=== PATIENT | female | born 1990 | race Caucasian/White ===

== ENCOUNTER 2016-08-18 17:56 | Inpatient (IN) | payer OTHER ==
--- NOTE | ~2016-08-18 | HP ---
History And Physical [id number] [place]. [address] NAME: TAVO MARTINS : 86 STATUS : ADM [place] PAT#: [id number] AGE: 25 ADM/REG DATE : 08/18/16 MR#: [id number] REPORT SERV DATE: 08/18/16 DICTATED BY: BERYL ARTIS DATE: 08/18/16 REPORT STATUS : Draft TRANSCRIBED BY: CHAZ DATE: 08/18/16 DATE OF ADMISSION: 08/18/2016 CHIEF COMPLAINT: DKA, direct admission/transfer from outside hospital facility. HISTORY OF PRESENT ILLNESS: According to the information available, the patient is a pleasant 25-year-old white woman with known diabetes type 1 since 2000 with insulin pump since 2008 who presented to [facility] Emergency Room Department complaining of blood sugar checking high on the glucometer throughout the night with increased vomiting and frequent urination. The patient had a prior episodes of DKA for which she was admitted in the fall at [facility]. The patient stated otherwise she has been managing her diabetes relatively well with insulin pump. [place] [facility] [place] noticed to be ill appearing. Further investigation revealed a diabetic ketoacidosis. She was started on insulin drip, IV fluids, and then request was made to transfer to our hospital as a direct admission for further management and evaluation as there were no beds available at the main [facility]. The patient denies any recent fever or chills. Denies any recent change in her medications or change in her regular diet. Denies any recent travel outside of the area or contact with sick persons or persons that travel outside of the area. PAST MEDICAL HISTORY: Significant for diabetes type 1 since 2000. Presently on an insulin pump since 2008. Only one episode of DKA admission in the fall, apparently triggered by a urinary tract infection as per the patient. History of hyperlipidemia, obesity, history reported the gastroparesis, diabetic neuropathy, osteoarthritis of both knees, history of asthma mild and intermittent PAST SURGICAL HISTORY: Significant for umbilical hernia repair in 2012. FAMILY HISTORY: Significant for hypertension. SOCIAL HISTORY: Denies tobacco abuse. She has never smoked. Denies alcohol abuse. Denies illicit or recreational drug abuse. Lives with family, has one child, 4 years old. ALLERGIES: TO ASPIRIN AND SURGICAL TAPE. HOME MEDICATIONS: According to the list provided, the patient is supposed to take Humalog insulin for the insulin pump. According to the reported Humalog schedule basal rate, she takes 0.77 units/hour from 12 a.m. to 7 a.m., then 0.9 units/hour from 7 a.m. to 12 p.m., and then 0.95 units/hour from 12 p.m. until 12 a.m. The patient takes at home Neurontin 300 mg p.o. q.h.s., reported Zocor 10 mg p.o. daily, Ultram 50 mg p.o. q.i.d. p.r.n. pain, phentermine 18.75 mg p.o. daily together with Topamax 50 mg p.o. daily, albuterol MDI two puffs q.4 hours p.r.n. shortness of breath, and Voltaren 1% gel 4 g topically t.i.d. to both knees. REVIEW OF SYSTEMS: Per H and P, otherwise negative in all review of systems. Please note that the History And Physical [address] [address] NAME: TAVO MARTINS : 88 STATUS : ADM [place] PAT#: [id number] AGE: 25 ADM/REG DATE : 08/18/16 MR#: [id number] REPORT SERV DATE: 08/18/16 DICTATED BY: BERYL ARTIS DATE: 08/18/16 REPORT STATUS : Draft TRANSCRIBED BY: MODL DATE: 08/18/16 comprehensive review of system was obtained and pertinent positives were including in the H and P. PHYSICAL EXAMINATION: GENERAL: Pleasant, cooperant, but pale, in mild distress, and ill appearing. VITAL SIGNS: Upon arrival to [facility] Emergency Room Department, blood pressure 117/63, pulse 78, respiratory rate 18, temperature 98, oxygen saturation 99%. Glucometer recording high. Upon arrival to our hospital, blood pressure 109/55, pulse 90, temperature 97.9, oxygen saturation 99% on room air, respiratory rate 20. HEENT: Pupils equal, round, and reactive to light. Extraocular movements intact. Throat, mild erythema. No exudate. NECK: Supple. No JVD. No bruit. No thyromegaly. No lymph nodes. LUNGS: Bilateral air entry with few a few bibasilary crackles. Good airway movement. No wheezing. HEART: Positive S1, S2. Regular rate and rhythm. No murmur. No rub. No gallop. PMI nondisplaced by palpation. ABDOMEN: Positive bowel sounds. Soft, obese, nontender. No guarding. No hepatosplenomegaly. EXTREMITIES: Full range of motion. +2 pulses. No clubbing, no cyanosis, no edema. NEUROLOGIC: Alert and oriented x3. Grossly nonfocal. Cranial nerves II through XII grossly intact. Motor strength: 5/5 symmetrical bilateral. Deep tendon reflexes 2/2 symmetrical bilateral. BACK: With decreased range of motion. Bilateral focal localized tenderness. No CVA tenderness. SKIN: No bruises, no rashes, no lacerations. SIGNIFICANT LABORATORY DATA: No laboratory data available as the patient is a direct admission from outside hospital facility. Review of the medical records sent to the patient show the pH 7.35/pCO2 of 32/pO2 of 96 in the room air. Sodium 127, potassium 5.4, chloride 94, bicarb 14, glucose 691, calcium 10, BUN 25, creatinine 0.9. Lipase 10 which is within normal limits. Liver function tests within normal limits. Magnesium 2 and phosphorus 4.8. White cell count 12.1, hemoglobin 13.4, platelet count 226. Urinalysis showed negative LE, negative nitrite, moderate blood. serum test negative. ASSESSMENT AND PLAN AND PROBLEM LIST: The patient is a pleasant 25-year-old white woman with known history of diabetes type 1, managed with the insulin pump presently, admitted as a direct admission from outside hospital facility for DKA. IMPRESSION: 1. Endocrinologic problem. a. Diabetic ketoacidosis. b. Diabetes type 1 with complications, presently on insulin pump at home. c. Hyperlipidemia. d. Obesity. For all the above, we are going to admit the patient on the Hospitalist Service on telemetry setting. We are going to continue diabetic History And Physical [address] [address] NAME: TAVO MARTINS : 86 STATUS : ADM [place] [facility]#: [id number] AGE: 25 ADM/REG DATE : 08/18/16 MR#: [id number] REPORT SERV DATE: 08/18/16 DICTATED BY: BERYL ARTIS ION DATE: 08/18/16 REPORT STATUS : Draft TRANSCRIBED BY: CHAZ DATE: 08/18/16 ketoacidosis treatment with aggressive IV hydration on normal saline 200 mL an hour and then after another extra liter to 150 mL an hour. We are going to change IV fluids D5 half NS with potassium and blood sugar decreases below 200. We are going to continue the insulin drip as per protocol with a target blood sugar level within 125 to 175 and targeted weight loss and dietary changes. Provide symptomatic treatment with Protonix IV, Zofran, and Phenergan IV p.r.n. 2. Leukocytosis, likely reactive leukemoid reaction. No obvious signs of clinical significant infectious process. We are going to continue to monitor for now. 3. Neuropathy, likely diabetic peripheral neuropathy. We are going to continue Neurontin as per home medication list. 4. Gastroparesis by history, we are going to continue diabetic treatment. 5. Osteoarthritis. Continue Voltaren local gel. 6. Asthma, mild intermittent, provide p.r.n. albuterol MDI as needed for shortness of breath. 7. Rhabdomyolysis, mild, possible. We are going to check a CK and monitor with IV hydration. PROGNOSIS: Moderately good for this admission. Discussed with the patient and questions were answered in full. Please note, the patient is a full code at this moment as discussed with the patient at bedside. Please note also the written H and P and written orders and instructions. RF/CHAZ Beryl Artis M.D. / [id number] CC: MD Mary Monroe
--- NOTE | ~2016-08-18 | DS ---
Discharge Summary [facility] [address] [facility] [place]. [address] NAME: TAVO MARTINS : 86 STATUS : DIS IN PAT#: [id number] AGE: 25 ADM/REG DATE : 08/18/16 MR#: [id number] REPORT SERV DATE: 08/24/16 DICTATED BY: TIFFANY CHAPARRO DATE: 08/24/16 REPORT STATUS : Draft TRANSCRIBED BY: MODL DATE: 08/24/16 ADMISSION DATE: 08/18/2016 DISCHARGE DATE: 08/20/2016 DISCHARGE DIAGNOSES: 1. Diabetic ketoacidosis. 2. Diabetes type 1. 3. Obesity. 4. Reactive leukocytosis. 5. Diabetic neuropathy. DISCHARGE MEDICATIONS: Continue home Voltaren Gel topically three times a day to knees 4 g; Ultram 50 mg one tab p.o. t.i.d. p.r.n. breakthrough pain; phentermine, to follow up with PCP; albuterol two puff inhalations every four hours as needed; Topamax 50 mg one tab p.o. daily; insulin pump, this is to be rescheduled by Dr. Nelson, the patient's wood floor refinisher, as the patient was doing well until recent re-change; Neurontin 300 mg one tab p.o. q.h.s.. DISCHARGE DISPOSITION: Home with close followup with PCP and the patient's wood floor refinisher, Dr. Nelson. HOSPITAL COURSE: Please see H and P for complete details. HISTORY OF PRESENT ILLNESS: Briefly, Ms. Martins is a 25-year-old female with past medical history of diabetes type 1, insulin dependent, on insulin pump, who has been doing well for some time; however, has had multiple recent stressors in her life and her family, somewhat variable compliance with diet, but has had recent adjustments in insulin pump to try to optimize this; however, due to life schedule, work schedule, and extra stressors, most recent schedule did not appear to be consistent controlling the patient's blood sugars, as the patient has had reported multiple times to be in the 300 to 400 pluses and then at outside facility noted to be over 600s, although pH was still borderline acidotic. The patient was transferred needing higher level of care from outside facility, as the patient did have significant gap that was reported and treated with aggressive IV fluids, insulin drip. The patient was notably significantly better by the next day; however, has not been quite weaned yet. Was given low-dose bridge of Levemir x1 and p.o. was restarted. The patient was feeling significantly more improved with improved blood sugars at the time of discharge. Diabetic Education evaluated and was in the process of assisting any new tubing prior to discharge and additionally new tubing for insulin supplies prior to discharge and to coordinate care with Dr. Nelson to assist with re-optimization of blood sugar medications. The patient felt comfortable. All questions were answered prior to discharge. DDN/CHAZ Tiffany Chaparro MD Discharge Summary [address] [address] NAME: TAVO MARTINS : 86 STATUS : DIS IN PAT#: [id number] AGE: 25 ADM/REG DATE : 08/18/16 MR#: [id number] REPORT SERV DATE: 08/24/16 DICTATED BY: TIFFANY CHAPARRO DATE: 08/24/16 REPORT STATUS : Draft TRANSCRIBED BY: MODMagdiel DATE: 08/24/16 / [id number] CC: MD ELIZABETH Monroe
[2016-08-18] MEDS ORDERED: NEUR300 PO (19:09)
[2016-08-18] MEDS ORDERED: ULTRAM50 PO (19:09)
[2016-08-18] MEDS ORDERED: VOLTAREN1 % TOP (19:09)
[2016-08-18] MEDS ORDERED: HUMAPUMP SC (19:10)
[2016-08-18] MEDS ORDERED: PHENTERMINE37.5 M1 PO (19:11)
[2016-08-18] MEDS ORDERED: VENTOLIN HFA INH (19:11)
[2016-08-18] MEDS ORDERED: TOPAMAX50 MG PO (19:11)
[2016-08-18 19:42] LABS: BASOPHILS 0.1 %; BASOPHILS ABSOLUTE 0.01 10/3/uL (0.0-0.16); EOSINOPHILS 0 %; HEMOGLOBIN 12.5 g/dL (12.0-16.0); IMMATURE GRANULOCYTES 0.3 %; IMMATURE GRANULOCYTES ABSOLUTE 0.03 10/3/uL (0.0-0.11); LYMPHOCYTES 20.2 %; MEAN CORPUS HGB CONC 34.7 g/dL (32.0-36.0); MEAN CORPUSCULAR HEMOGLOB 29.3 pg (26.0-34.0); MEAN CORPUSCULAR VOLUME 84.5 fL (80-100); MEAN PLATELET VOLUME 10.5 fL (9.2-13.0); MONOCYTES 7.9 %; MONOCYTES ABSOLUTE 0.78 10/3/uL (0.21-1.20); NEUTROPHILS 71.5 %; NEUTROPHILS ABSOLUTE 7.06 10/3/uL (2.02-8.40); PLATELET COUNT 278 10/3/uL (150-400); RBC DISTRIBUTION WIDTH 13.1 % (12.0-16.0); RED CELL COUNT 4.26 10/6/uL (4.0-5.6); WHITE BLOOD CELLS 9.9 10/3/uL (4.5-10.5)
[2016-08-18 19:43] LABS: MANUAL DIFF NO %
[2016-08-18 19:55] LABS: ALBUMIN 3.5 G/DL (3.5-5.0); BUN (BLOOD UREA NITROGEN) 23 MG/DL (6-23); CALCIUM, SERUM 9.3 MG/DL (8.5-10.4); CHLORIDE, SERUM 103 MMOL/L (96-112); CO2 (CARBON DIOXIDE) 21 MMOL/L (24-34); CREATININE 0.93 MG/DL (0.55-1.02); GFR AFRICAN AMERICAN 98 ML/MIN (>=60); GFR NON AFRICAN AMERICAN 84 ML/MIN (>=60); GLUCOSE, SERUM 252 MG/DL (60-99); PHOSPHORUS, SERUM 3.2 MG/DL (2.5-4.5); POTASSIUM, SERUM 4.4 MMOL/L (3.5-5.3); SODIUM, SERUM 133 MMOL/L (135-148)
[2016-08-18 21:04] LABS: CPK 100 U/L (0-200); FREE T4 1.35 NG/DL (0.76-1.46); TROPONIN I <0.02 NG/ML (<0.05); ULTRASENSITIVE TSH 0.957 MCIU/ML (0.358-3.740)
[2016-08-18 21:05] LABS: CK-MB 1.5 NG/ML
[2016-08-18 21:18] LABS: PROCALCITONIN 8.38 ng/mL (<0.5)
[2016-08-19 01:29] LABS: ALBUMIN 2.9 G/DL (3.5-5.0); BUN (BLOOD UREA NITROGEN) 23 MG/DL (6-23); CALCIUM, SERUM 8.5 MG/DL (8.5-10.4); CHLORIDE, SERUM 108 MMOL/L (96-112); CO2 (CARBON DIOXIDE) 25 MMOL/L (24-34); CREATININE 0.97 MG/DL (0.55-1.02); GFR AFRICAN AMERICAN 93 ML/MIN (>=60); GFR NON AFRICAN AMERICAN 80 ML/MIN (>=60); PHOSPHORUS, SERUM 2.8 MG/DL (2.5-4.5); SODIUM, SERUM 139 MMOL/L (135-148)
[2016-08-19 01:30] LABS: GLUCOSE, SERUM 175 MG/DL (60-99)
[2016-08-19 07:40] LABS: BASOPHILS 0.3 %; BASOPHILS ABSOLUTE 0.02 10/3/uL (0.0-0.16); EOSINOPHILS 0.4 %; EOSINOPHILS ABSOLUTE 0.03 10/3/uL (0.0-0.53); HEMATOCRIT 35.2 % (36.0-48.0); HEMOGLOBIN 11.8 g/dL (12.0-16.0); IMMATURE GRANULOCYTES 0.3 %; IMMATURE GRANULOCYTES ABSOLUTE 0.02 10/3/uL (0.0-0.11); LYMPHOCYTES 27.4 %; LYMPHOCYTES ABSOLUTE 2.16 10/3/uL (0.67-4.30); MANUAL DIFF NO %; MEAN CORPUS HGB CONC 33.5 g/dL (32.0-36.0); MEAN CORPUSCULAR HEMOGLOB 29.6 pg (26.0-34.0); MEAN CORPUSCULAR VOLUME 88.2 fL (80-100); MEAN PLATELET VOLUME 10.4 fL (9.2-13.0); MONOCYTES 6.6 %; MONOCYTES ABSOLUTE 0.52 10/3/uL (0.21-1.20); NEUTROPHILS ABSOLUTE 5.12 10/3/uL (2.02-8.40); PLATELET COUNT 253 10/3/uL (150-400); RBC DISTRIBUTION WIDTH 13.4 % (12.0-16.0); RED CELL COUNT 3.99 10/6/uL (4.0-5.6); WHITE BLOOD CELLS 7.9 10/3/uL (4.5-10.5)
[2016-08-19 08:07] LABS: PLATELET ESTIMATE ADQ (ADEQUATE); POLYCHROMASIA 1+ (2-5/OIF) (0-1/OIF); TEARDROP SHAPED RBCS OCC (0-2/OIF)
[2016-08-19 08:08] LABS: ALBUMIN 2.9 G/DL (3.5-5.0); ALKALINE PHOSPHATASE 94 U/L (45-117); BUN (BLOOD UREA NITROGEN) 22 MG/DL (6-23); CALCIUM, SERUM 8.4 MG/DL (8.5-10.4); CHLORIDE, SERUM 110 MMOL/L (96-112); CHOL/HDL RATIO(NOT ORDER) 2.8 (0-5); CHOLESTEROL 132 MG/DL (< 200); CO2 (CARBON DIOXIDE) 20 MMOL/L (24-34); CREATININE 0.86 MG/DL (0.55-1.02); DIRECT BILIRUBIN 0.1 MG/DL (0.0-0.4); GFR AFRICAN AMERICAN 107 ML/MIN (>=60); GFR NON AFRICAN AMERICAN 93 ML/MIN (>=60); GLUCOSE, SERUM 152 MG/DL (60-99); HDL CHOLESTEROL 47 MG/DL (> 49); INDIRECT BILIRUBIN(NOT ORDER) 0.6 MG/DL (0.1-0.9); LDL CHOLESTEROL 74 MG/DL (< 130); NON-HDL CHOLESTEROL 85 MG/DL (< 160); PHOSPHORUS, SERUM 2.8 MG/DL (2.5-4.5); SGOT(AST) 9 U/L (5-40); SGPT(ALT) 16 U/L (5-65); SODIUM, SERUM 138 MMOL/L (135-148); TOTAL BILIRUBIN 0.7 MG/DL (0-1.2); TRIGLYCERIDE 58 MG/DL (< 150)
[2016-08-20 04:39] LABS: BASOPHILS 0.4 %; BASOPHILS ABSOLUTE 0.02 10/3/uL (0.0-0.16); EOSINOPHILS 0.7 %; EOSINOPHILS ABSOLUTE 0.04 10/3/uL (0.0-0.53); HEMATOCRIT 33.6 % (36.0-48.0); HEMOGLOBIN 11.5 g/dL (12.0-16.0); IMMATURE GRANULOCYTES 0.2 %; IMMATURE GRANULOCYTES ABSOLUTE 0.01 10/3/uL (0.0-0.11); LYMPHOCYTES 41.8 %; LYMPHOCYTES ABSOLUTE 2.36 10/3/uL (0.67-4.30); MEAN CORPUS HGB CONC 34.2 g/dL (32.0-36.0); MEAN CORPUSCULAR HEMOGLOB 29.2 pg (26.0-34.0); MONOCYTES 7.8 %; MONOCYTES ABSOLUTE 0.44 10/3/uL (0.21-1.20); NEUTROPHILS 49.1 %; NEUTROPHILS ABSOLUTE 2.78 10/3/uL (2.02-8.40); PLATELET COUNT 209 10/3/uL (150-400); RBC DISTRIBUTION WIDTH 13.2 % (12.0-16.0); RED CELL COUNT 3.94 10/6/uL (4.0-5.6); WHITE BLOOD CELLS 5.7 10/3/uL (4.5-10.5)
[2016-08-20 04:41] LABS: MANUAL DIFF NO %; MEAN CORPUSCULAR VOLUME 85.3 fL (80-100)
[2016-08-20 04:51] LABS: CALCIUM, SERUM 8.2 MG/DL (8.5-10.4); CHLORIDE, SERUM 112 MMOL/L (96-112); CREATININE 0.65 MG/DL (0.55-1.02); GFR AFRICAN AMERICAN 141 ML/MIN (>=60); GFR NON AFRICAN AMERICAN 122 ML/MIN (>=60); GLUCOSE, SERUM 140 MG/DL (60-99); POTASSIUM, SERUM 3.7 MMOL/L (3.5-5.3); SODIUM, SERUM 143 MMOL/L (135-148)
[2016-08-20 04:52] LABS: BUN (BLOOD UREA NITROGEN) 13 MG/DL (6-23); CO2 (CARBON DIOXIDE) 25 MMOL/L (24-34)
[2016-08-20 06:02] LABS: PROCALCITONIN 6.16 ng/mL (<0.5)
== END 2016-08-20 15:45 | disposition home or self-care (01) | DRG 638 ==
LOC: CDU1 17:56 → CDU2 17:57
PROVIDERS: Internal Medicine; Student in an Organized Health Care Education/Training Program
DX: E10.10 Type 1 diabetes mellitus with ketoacidosis without coma (principal); Z68.41 Body mass index [BMI] 40.0-44.9, adult; E11.42 Type 2 diabetes mellitus with diabetic polyneuropathy; E11.43 Type 2 diabetes mellitus with diabetic autonomic (poly)neuropathy; K31.84 Gastroparesis; M17.0 Bilateral primary osteoarthritis of knee; J45.909 Unspecified asthma, uncomplicated; E78.5 Hyperlipidemia, unspecified; E66.9 Obesity, unspecified; Z96.41 Presence of insulin pump (external) (internal); Z79.4 Long term (current) use of insulin
CPT/HCPCS: 80048; 80061; 80069; 80076; 82550; 82553; 82962; 83036; 83735; 84145; 84439; 84443; 84484; 85025; A9270-GY; C9113; J2765